=== PATIENT | male | born 1965 | race Caucasian/White ===

== ENCOUNTER → 2017-04-21 | Outpatient (CLI) | payer OTHER ==
[~2017-04-21] MED LIST: OXYC1TAB3 PO
[2017-04-21 12:29] LABS: BENZODIAZEPINE, URINE NEG (NEG); COCAINE,URINE NEG (NEG); PHENCYCLIDINE, URINE NEG (NEG)
== END | disposition home or self-care (01) ==
LOC: C.LAB1850 09:41
PROVIDERS: ATTEND Psychiatry & Neurology Psychiatry
DX: F31.89 Other bipolar disorder (principal)

== ENCOUNTER → 2017-08-23 | Outpatient (CLI) | payer BC ==
[~2017-08-23] MED LIST changes: +LAMO150T32 PO; -OXYC1TAB3 PO
[2017-08-23 09:40] LABS: BASO % 0.2 %; BASO ABS # 0.01 K/uL (0-0.2); COMPLETE YES; EOS % 4.1 %; HEMATOCRIT 41.5 % (42-52); IG% 0.2 %; LYMPH ABS # 2.37 K/uL (1.2-3.4); MEAN CELL VOLUME 95.6 fL (80-100); MEAN CORPUSCULAR HEMOGLOBIN 31.8 pg (25-34); MEAN CORPUSCULAR HGB CONC 33.3 g/dl (32-36); MEAN PLATELET VOLUME 9.5 fL (7.4-10.4); MONO % 6.9 %; NEUT % 46.6 %; PLATELET COUNT 197 K/uL (130-400); RED BLOOD COUNT 4.34 M/uL (4.7-6.1); WHITE BLOOD COUNT 5.64 K/uL (4.8-10.8)
[2017-08-23 09:57] LABS: ALT/SGPT 23 U/L (12-78); BLOOD UREA NITROGEN 12 mg/dl (7-18); BUN/CREATININE RATIO 12.3 (10-20); CALCIUM 8.8 mg/dl (8.5-10.1); CARBON DIOXIDE 29 mmol/L (21-32); CHLORIDE 105 mmol/L (98-107); CHOLESTEROL 171 mg/dl (0-200); CREATININE 1.01 mg/dl (0.60-1.40); GLUCOSE 96 mg/dl (70-99); POTASSIUM 4.3 mmol/L (3.5-5.1); SODIUM 140 mmol/L (136-145); TRIGLYCERIDES 54 mg/dl (0-150); VERY LOW DENSITY LIPOPROT CALC 11 mg/dl
[2017-08-23 10:07] LABS: ALB/GLOB RATIO 1.1 (0.9-2); ALKALINE PHOSPHATASE 50 U/L (45-117); AST/SGOT 16 U/L (15-37); CHOLESTEROL/HDL RATIO 2.1; HDL CHOLESTEROL 83 mg/dl; LDL CHOLESTEROL CALCULATED 77 mg/dl
[2017-08-23 10:16] LABS: BENZODIAZEPINE, URINE NEG (NEG); COCAINE,URINE NEG (NEG); PHENCYCLIDINE, URINE NEG (NEG)
[2017-08-23 10:20] LABS: URINE APPEARANCE CLEAR (CLEAR); URINE BILIRUBIN NEG (NEG); URINE COLOR YELLOW; URINE NITRITE NEG (NEG); URINE SPECIFIC GRAVITY 1.021 (1.000-1.030); UROBILINOGEN NEG (NEG); ZZUR CULT IF INDIC CLEAN CATCH NO
[2017-08-23 10:24] LABS: MANUAL MICROSCOPIC REQUIRED? NO; REVIEW REQ? NO
[2017-08-23 10:49] LABS: LYME DISEASE AB IGG POS (NEG); LYME DISEASE AB IGM EQUIVOCAL (NEG)
== END | disposition home or self-care (01) ==
LOC: C.LAB1850 08:15
PROVIDERS: ATTEND Internal Medicine
DX: Z12.5 Encounter for screening for malignant neoplasm of prostate (principal); Z13.6 Encounter for screening for cardiovascular disorders; F31.89 Other bipolar disorder; R26.9 Unspecified abnormalities of gait and mobility

== ENCOUNTER → 2017-09-09 | Outpatient (CLI) | payer BC ==
[~2017-09-09] MED LIST changes: +LAMO150T PO; -LAMO150T32 PO
[2017-09-09 13:26] LABS: BENZODIAZEPINE, URINE NEG (NEG); COCAINE,URINE NEG (NEG); PHENCYCLIDINE, URINE NEG (NEG)
== END | disposition home or self-care (01) ==
LOC: C.LAB1850 09:55
PROVIDERS: ATTEND Psychiatry & Neurology Psychiatry
DX: F31.89 Other bipolar disorder (principal)

== ENCOUNTER → 2017-10-07 | Outpatient (CLI) | payer OTHER | END | disposition home or self-care (01) | LOC: C.LAB1850 11:08 | PROVIDERS: ATTEND Psychiatry & Neurology Psychiatry | DX: F31.89 Other bipolar disorder (principal) ==

== ENCOUNTER → 2018-01-26 | Outpatient (CLI) | payer OTHER ==
[2018-01-26 13:12] LABS: BASO % 0.2 %; BASO ABS # 0.01 K/uL (0-0.2); EOS % 2.6 %; EOS ABS # 0.15 K/uL (0-0.5); HEMATOCRIT 42.9 % (42-52); HEMOGLOBIN 15.1 g/dL (14.0-18.0); IG# 0.01 K/uL (0.00-0.02); LYMPH ABS # 2.17 K/uL (1.2-3.4); MEAN CELL VOLUME 93.3 fL (80-100); MEAN CORPUSCULAR HEMOGLOBIN 32.8 pg (25-34); MEAN CORPUSCULAR HGB CONC 35.2 g/dl (32-36); MEAN PLATELET VOLUME 9.7 fL (7.4-10.4); MONO ABS # 0.47 K/uL (0.11-0.59); NEUT ABS # 3.06 K/uL (1.4-6.5); PLATELET COUNT 259 K/uL (130-400); RED CELL DISTRIBUTION WIDTH CV 13.5 % (11.5-14.5); RED CELL DISTRIBUTION WIDTH SD 46.1 fL (36.4-46.3); WHITE BLOOD COUNT 5.87 K/uL (4.8-10.8)
== END | disposition home or self-care (01) ==
LOC: C.LAB1850 11:44
PROVIDERS: ATTEND Internal Medicine
DX: D64.9 Anemia, unspecified (principal); F31.89 Other bipolar disorder; E55.9 Vitamin D deficiency, unspecified

== ENCOUNTER → 2018-05-01 | Outpatient (CLI) | payer OTHER ==
[2018-05-05 22:33] LABS: LAMICTAL (LAMOTRIGINE)**22060 2.9 mcg/mL (4.0-18.0)
== END | disposition home or self-care (01) ==
LOC: C.LAB1850 09:09
PROVIDERS: ATTEND Psychiatry & Neurology Psychiatry
DX: F31.89 Other bipolar disorder (principal)

== ENCOUNTER 2023-02-05 15:16 | Observation (INO) ==
[2023-02-05] MEDS ORDERED: SODIUM CHLORIDE 0.9% 1000ML 1,000 ML IV STA (15:50)
[2023-02-05] MEDS: METOPROLOL TARTRATE 1 MG/ML VIAL IV PRN ×2 (15:58→16:40)
--- NOTE | 2023-02-05 15:59 | Emergency Department Note ---
Impression & Plan Atrial flutter with rapid ventricular response ED Provider Note INFORMANT: Patient ED PROVIDER(S): Ignacio Sneed DO CHIEF COMPLAINT: Dizziness/lightheadedness, burning in chest PLAN: Disposition: Admission Outpatient prescription management: none Discussion with: I spoke with the hospitalist, who will see the patient for admission/observation and further evaluation and consultation. MEDICAL DECISION MAKING: This is a 57-year-old male presents to the ED with a chief complaint of lightheadedness for the Past couple of days. He also reports some shortness of breath today. He also has a burning sensation in his chest. The patient was doing some exercise at the time of the symptoms started today. He denies any past medical history although states that he did have a episode of atrial fibrillation in April that resolved after he went to the emergency department. He did not follow-up at all. He has not had any concerning symptoms since. The patient's twelve-lead EKG and monitor show atrial flutter with a heart rate of 160 with a right bundle branch block. His blood pressure initially was 97/74. It was 104 systolic when I saw him in the room. Afebrile. Heart is rapid and slightly irregular. Lungs are clear. Abdomen soft nontender. EKG initially showed a flutter with a heart rate of 160 with a right bundle branch block. Troponin was elevated at 136.6. No leukocytosis or anemia. No electrolyte abnormality or kidney dysfunction. Chest x-ray was clear. Thyroid was normal. The patient received 10 mg IV metoprolol without change in his rate. He was then given 20 mg of IV Cardizem. His rate improved to about 50. He was in atrial fibrillation/flutter at that point. Blood pressure was stable. He was given a liter normal saline prior to the metoprolol. The patient was also started on IV heparin bolus and drip. He will be seen by the hospitalist for further evaluation and care Triage Nursing notes reviewed. Vital Signs: reviewed Prior /Outside records reviewed: [none] Differential diagnosis: A-fib, a flutter, thyroid dysfunction, PE, pneumonia, other. Diagnostics, as interpreted by me: 12 lead ECG: Atrial flutter at a rate of 160 with right bundle branch block. PVCs. Normal QTc Cardiac Monitoring ordered: Atrial flutter in the 150-160 range initially. Medical decision rules: [none] Imaging studies: Chest x-ray: No pneumonia or congestive heart failure Procedures: none. Critical care: I have personally spent 30 minutes of critical care time in the direct management of this patient. This includes bedside care, interpretation of diagnostic studies, and testing, discussion with consultants, patient, and family members, and other required patient management activities. This 30 minutes is in excess of all separately billable procedures. HPI: See MDM above. PAST MEDICAL HISTORY: See Below PAST SURGICAL HISTORY: See Below SOCIAL HISTORY: See Below HOME MEDICATIONS:See Below ALLERGIES: See Below VITALS: See Below PHYSICAL EXAMINATION: See MDM for positive findings otherwise unremarkable. CONSTITUTIONAL/VITAL SIGNS: Reviewed GENERAL:done as appropriate INTEGUMENTARY: done as appropriate HEAD: done as appropriate EYES: done as appropriate RESPIRATORY: done as appropriate CARDIOVASCULAR:done as appropriate GI/ABDOMEN:done as appropriate EXTREMITIES: done as appropriate NEUROLOGICAL: done as appropriate PSYCHIATRIC:done as appropriate MUSCULOSKELETAL:done as appropriate TRIAGE NURSING DOCUMENTATION REVIEWED. Past Med/Surg History Medical History Allergic rhinitis Bipolar disorder, unspecified History of atrial fibrillation occurred while in [place] fall 2021, was treated temporarily, no issues since that one episode; f/u PCP only History of COVID-19 fall 05/2021, [facility], not hosp; fatigue, headache, fever, loss taste/smell>resolved w/exception of brain fog and decreased energy levels Hyperplastic colon polyp hx Internal hemorrhoids hx Lyme disease hx Surgical History History of esophagogastroduodenoscopy (EGD) Hx of colonoscopy Hx of sinus surgery S/P appendectomy Family History Grandfather (Paternal) Myocardial infarction Father Lung cancer Denies family history of Ovarian cancer Prostate cancer Breast cancer Colorectal cancer Social History Smoking Status: Never smoker Second Hand Exposure: Yes (hx); Do You Dip or Chew Tobacco: No; Hx Alcohol Use: Yes Alcohol type: beer, wine and hard liquor Hx Substance Use: No Preferred Language: [place] Communication Ability: Effective Visual Impairment: No Limitations Hearing Ability: Normal Mainframe Software Developer Required: No Beliefs That Will Affect Care: None marital status: Legally Current Living Situation: Alone current occupational status: employed 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 Feels Safe at Home: Yes Childhood Exposure to Second-Hand Smoke: No Diet: regular Dental Care, Regularly: Yes Physical Activity Frequency: 3-4 Times per Week Seatbelt Use: always Sunscreen Use: Yes Assistive Devices: Glasses Allergies Allergies Allergy/AdvReac Type Severity Reaction Status Date / Time No Known Allergies Allergy Verified 01/28/23 11:00 Home Meds Previous Rx's Medication Instructions Recorded sildenafil 100 mg tablet (Viagra) 100 mg PO DAILY PRN sexual 07/27/22 activity #30 tabs imiquimod 5 % topical cream packet 1 applic topical .COMPLEX #24 ea 01/28/23 Results & Data (ED) Vital Signs Vital Signs - 24 hr 02/05/23 15:25 02/05/23 15:58 02/05/23 16:05 Temperature 36.8 C Temperature Source Skin Pulse Rate 156 H 103 H 98 H Pulse Rate from SpO2 Sensor Respiratory Rate 20 Respiratory Effort / Characteristics Non-Labored Spontaneous Respiratory Depth Normal Respiratory Pattern Regular Blood Pressure 97/74 L 103/75 Blood Pressure Mean 81 Pulse Oximetry 98 Oxygen Delivery Method Room Air Sepsis Recent Fever Within 48 Hours No Sepsis New/Unexplained Change in Mental Status N/A Sepsis Action Taken by Nursing No Action Required 02/05/23 16:40 02/05/23 15:51 02/05/23 16:00 Temperature Temperature Source Pulse Rate 141 H 107 H 105 H Pulse Rate from SpO2 Sensor 82 82 Respiratory Rate 23 10 L Respiratory Effort / Characteristics Respiratory Depth Respiratory Pattern Blood Pressure 106/72 Blood Pressure Mean Pulse Oximetry 97 96 Oxygen Delivery Method Sepsis Recent Fever Within 48 Hours Sepsis New/Unexplained Change in Mental Status Sepsis Action Taken by Nursing 02/05/23 16:01 02/05/23 16:01 02/05/23 16:10 Temperature Temperature Source Pulse Rate 102 H 73 Pulse Rate from SpO2 Sensor 72 71 Respiratory Rate 28 H 13 Respiratory Effort / Characteristics Respiratory Depth Respiratory Pattern Blood Pressure 106/72 Blood Pressure Mean 83 Pulse Oximetry 97 97 Oxygen Delivery Method Sepsis Recent Fever Within 48 Hours Sepsis New/Unexplained Change in Mental Status Sepsis Action Taken by Nursing 02/05/23 16:20 02/05/23 16:30 02/05/23 16:40 Temperature Temperature Source Pulse Rate 84 100 H 151 H Pulse Rate from SpO2 Sensor 78 71 150 H Respiratory Rate 15 23 24 Respiratory Effort / Characteristics Respiratory Depth Respiratory Pattern Blood Pressure Blood Pressure Mean Pulse Oximetry 95 96 95 Oxygen Delivery Method Sepsis Recent Fever Within 48 Hours Sepsis New/Unexplained Change in Mental Status Sepsis Action Taken by Nursing 02/05/23 16:46 02/05/23 16:46 02/05/23 16:47 Temperature Temperature Source Pulse Rate 149 H Pulse Rate from SpO2 Sensor 150 H Respiratory Rate 14 Respiratory Effort / Characteristics Respiratory Depth Respiratory Pattern Blood Pressure 123/73 100/78 Blood Pressure Mean 89 85 Pulse Oximetry 97 Oxygen Delivery Method Sepsis Recent Fever Within 48 Hours Sepsis New/Unexplained Change in Mental Status Sepsis Action Taken by Nursing 02/05/23 16:47 02/05/23 16:50 02/05/23 17:28 Temperature Temperature Source Pulse Rate 150 H 77 19 L Pulse Rate from SpO2 Sensor 147 H 80 Respiratory Rate 13 12 Respiratory Effort / Characteristics Respiratory Depth Respiratory Pattern Blood Pressure Blood Pressure Mean Pulse Oximetry 97 97 Oxygen Delivery Method Sepsis Recent Fever Within 48 Hours Sepsis New/Unexplained Change in Mental Status Sepsis Action Taken by Nursing Laboratory Data 02/05/23 15:35 02/05/23 15:35 Lab Results 02/05/23 02/05/23 02/05/23 Range/Units 15:35 15:35 15:35 WBC 6.95 (4.8-10.8) K/ul RBC 4.62 L (4.70-6.10) M/uL Hgb 14.8 (14.0-18.0) g/dl Hct 43.5 (42.0-52.0) % MCV 94.2 (80.0-100.0) fL MCH 32.0 (25.0-34.0) pg MCHC 34.0 (32.0-36.0) g/dL RDW Std Deviation 44.6 (36.4-46.3) fL RDW Coeff of Blue 12.9 (11.5-14.5) % Plt Count 282 (130-400) K/uL MPV 9.7 (9.4-12.4) fL Immature Gran % (Auto) 0.3 % Neut % (Auto) 51.6 % Lymph % (Auto) 37.1 % [place] % (Auto) 7.8 % Eos % (Auto) 2.9 % Baso % (Auto) 0.3 % Neut # (Auto) 3.59 (1.40-6.50) K/uL Lymph # (Auto) 2.58 (1.2-3.4) K/uL [place] # (Auto) 0.54 (0.11-0.59) K/uL Eos # (Auto) 0.20 (0-0.50) K/uL Baso # (Auto) 0.02 (0-0.2) K/uL Immature Gran # (Auto) 0.02 (0.01-0.20) K/uL PT 11.3 (9.0-12.0) Seconds INR 1.0 (0.9-1.1) APTT 26.8 (21.0-31.0) Seconds PTT Ratio 1.0 Sodium 140 (136-145) mmol/L Potassium 4.2 (3.5-5.1) mmol/L Chloride 107 (98-107) mmol/L Carbon Dioxide 26 (21-32) mmol/L Anion Gap 7 (3-11) BUN 22 (6-23) mg/dl Creatinine 1.01 (0.6-1.4) mg/dl Est Cr Clr Drug Dosing 97.6 ml/min Est GFR ( Amer) 95.9 ml/min Est GFR (Non-Af Amer) 82.8 ml/min BUN/Creatinine Ratio 21.8 H (10-20) Glucose 104 H (70-99(Fasting)) mg/dl Calcium 9.3 (8.6-10.3) mg/dl Magnesium 1.7 (1.7-2.4) mg/dl Total Bilirubin 0.4 (0.2-1.0) mg/dl AST 19 (13-39) U/L ALT 15 (7-52) U/L Alkaline Phosphatase 43 (34-104) U/L Troponin I High Sens 136.6 H* (0-20) pg/ml Total Protein 6.6 (6.0-8.3) gm/dl Albumin 4.0 (3.4-5.0) gm/dl Globulin 2.6 (2.5-4.0) gm/dl Albumin/Globulin Ratio 1.5 (0.9-2) TSH (0.300-4.500) uIu/ml 02/05/23 Range/Units 15:35 WBC (4.8-10.8) K/ul RBC (4.70-6.10) M/uL Hgb (14.0-18.0) g/dl Hct (42.0-52.0) % MCV (80.0-100.0) fL MCH (25.0-34.0) pg MCHC (32.0-36.0) g/dL RDW Std Deviation (36.4-46.3) fL RDW Coeff of Blue (11.5-14.5) % Plt Count (130-400) K/uL MPV (9.4-12.4) fL Immature Gran % (Auto) % Neut % (Auto) % Lymph % (Auto) % [place] % (Auto) % Eos % (Auto) % Baso % (Auto) % Neut # (Auto) (1.40-6.50) K/uL Lymph # (Auto) (1.2-3.4) K/uL [place] # (Auto) (0.11-0.59) K/uL Eos # (Auto) (0-0.50) K/uL Baso # (Auto) (0-0.2) K/uL Immature Gran # (Auto) (0.01-0.20) K/uL PT (9.0-12.0) Seconds INR (0.9-1.1) APTT (21.0-31.0) Seconds PTT Ratio Sodium (136-145) mmol/L Potassium (3.5-5.1) mmol/L Chloride (98-107) mmol/L Carbon Dioxide (21-32) mmol/L Anion Gap (3-11) BUN (6-23) mg/dl Creatinine (0.6-1.4) mg/dl Est Cr Clr Drug Dosing ml/min Est GFR ( Amer) ml/min Est GFR (Non-Af Amer) ml/min BUN/Creatinine Ratio (10-20) Glucose (70-99(Fasting)) mg/dl Calcium (8.6-10.3) mg/dl Magnesium (1.7-2.4) mg/dl Total Bilirubin (0.2-1.0) mg/dl AST (13-39) U/L ALT (7-52) U/L Alkaline Phosphatase (34-104) U/L Troponin I High Sens (0-20) pg/ml Total Protein (6.0-8.3) gm/dl Albumin (3.4-5.0) gm/dl Globulin (2.5-4.0) gm/dl Albumin/Globulin Ratio (0.9-2) TSH 2.005 (0.300-4.500) uIu/ml Administered Medications Metoprolol Tartrate (Metoprolol Tartrate 1 Mg/Ml Vial) 5 mg IV Q5M PRN PRN Reason: Tachycardia Stop: 03/07/23 15:49 Last Admin: 02/05/23 16:40 Dose: 5 mg Documented By: Admin: 02/05/23 15:58 Dose: 5 mg Documented By: MG Discontinued Medications Diltiazem HCl (Diltiazem Hcl 5 Mg/Ml 5 Ml Vial) 20 mg IV NOW STA Stop: 02/05/23 16:43 Last Admin: 02/05/23 16:46 Dose: 20 mg Documented By: MG Co-signed By: [facility] Sodium Chloride (Nss 1000ml) 1,000 mls @ 999 mls/hr IV .Q1H1M STA Stop: 02/05/23 16:50 Last Infusion: 02/05/23 16:58 Dose: 0 mls/hr Documented By: Admin: 02/05/23 15:56 Dose: 999 mls/hr Documented By: MG Imaging Data Radiologist's Impression: Chest X-Ray 02/05/23 15:51 XR chest 1V portable HISTORY: Dysrhythmia COMPARISON: Chest CT 12/06/2022. FINDINGS: The lungs are clear. Cardiac silhouette is normal in size. No pleural effusions. No pneumothorax. IMPRESSION: No acute process. ACT 112: Negative or not required by law. Electronically signed by: Wan Licona M.D. 02/05/2023 4:23 PM Discharge Plan Visit Data Chief Complaint: Arrhythmia/Palpitations Stated Complaint: AFIB, DIZZINESS ED Provider: Ignacio Sneed Discharge Problem: Atrial flutter with rapid ventricular response Patient Disposition: Being Evaluated by Hospitalist Forms Stand Alone Forms: [facility] Prescriptions Prescriptions: No Action imiquimod 5 % cream in packet 1 applic topical .COMPLEX Qty: 24 0RF Rx Instructions: 1 applic topically 3 times per week; sildenafil [Viagra] 100 mg tablet 100 mg PO DAILY PRN (Reason: sexual activity) Qty: 30 6RF Rx Instructions: administer 30 minutes to 4 hours before activity Referrals Referrals: Michael Hicks MD [Primary Care Provider] -
[2023-02-05 16:11] LABS: Basophils # (auto) 0.02 K/uL (0-0.2); Basophils % (auto) 0.3 %; Eosinophils % (auto) 2.9 %; Hematocrit (blood only) 43.5 % (42.0-52.0); Hemoglobin 14.8 g/dl (14.0-18.0); Immature Granulocytes # (auto) 0.02 K/uL (0.01-0.20); Immature Granulocytes % (auto) 0.3 %; Lymphocytes # (auto) 2.58 K/uL (1.2-3.4); Lymphocytes % (auto) 37.1 %; Mean Corpuscular Volume 94.2 fL (80.0-100.0); Mean Platelet Volume 9.7 fL (9.4-12.4); Monocytes # (auto) 0.54 K/uL (0.11-0.59); Monocytes % (auto) 7.8 %; Neutrophils # (auto) 3.59 K/uL (1.40-6.50); Neutrophils % (auto) 51.6 %; Platelet Count 282 K/uL (130-400); RDW Coefficient of Variation 12.9 % (11.5-14.5); RDW Standard Deviation 44.6 fL (36.4-46.3); Red Blood Count 4.62 M/uL (4.70-6.10); White Blood Count 6.95 K/ul (4.8-10.8)
[2023-02-05 16:18] LABS: Albumin Globulin Ratio 1.5 (0.9-2); BUN Creatinine Ratio 21.8 (10-20); Bilirubin,Total 0.4 mg/dl (0.2-1.0); Calcium 9.3 mg/dl (8.6-10.3); Creatinine Clr Calc Pharmacy 97.6 ml/min; Est GFR (African American) 95.9 ml/min; Est GFR (Non-African American) 82.8 ml/min; Globulin 2.6 gm/dl (2.5-4.0); Magnesium 1.7 mg/dl (1.7-2.4); Potassium 4.2 mmol/L (3.5-5.1); Total Protein 6.6 gm/dl (6.0-8.3)
--- NOTE | 2023-02-05 16:24 | XRay Report ---
XR chest 1V portable HISTORY: Dysrhythmia COMPARISON: Chest CT 12/06/2022. FINDINGS: The lungs are clear. Cardiac silhouette is normal in size. No pleural effusions. No pneumot horax. IMPRESSION: No acute process. ACT 112: Negative or not required by law. Electronically signed by: Wan Licona M.D. 02/05/2023 4:23 PM
[2023-02-05 16:34] LABS: Troponin I High Sensitivity 136.6 pg/ml (0-20)
[2023-02-05 16:39] LABS: Partial Thromboplastin Time 26.8 Seconds (21.0-31.0); Prothrombin Time 11.3 Seconds (9.0-12.0)
[2023-02-05] MEDS ORDERED: dilTIAZem HCl 5 MG/ML 5 ML VIAL IV STA (16:42)
[2023-02-05] MEDS ORDERED: Heparin IV Adult Wt-Based Standard WITH Bolus Protocol IV STA (17:28)
[2023-02-05] MEDS ORDERED: HEPARIN SOD (PORCINE) 1000 UNIT/ML IV ONE ×2 (17:44→18:00)
[2023-02-05] MEDS ORDERED: HEPARIN SODIUM/DEXTROSE 25,000 UNITS/500 ML BAG IV SCH (17:45)
--- NOTE | 2023-02-05 18:00 | History & Physical Report ---
Date of Service February 05, 2023 Assessment & Plan (1) Atrial flutter with rapid ventricular response: Plan: Adrián is a 57-year-old male with a past medical history of A-fib, GERD, anxiety, and Lyme disease who presented to the ER with 4 days of lightheadedness, weakness, and exercise fatigue without syncope or chest pain who was found to be in A-fib with RVR up to the 150s. This is the second episode of A-fib. He has been admitted for A-fib RVR with elevated troponin A-fib with RVR, w/ suspected demand ischemia. Acute, unstable. 1st recurrence. Second episode, patient had 1 episode onset by exercise approximately 1 year ago at outside hospital. He was prescribed a medication which she does not remember the name of, but did not take this due to going back to normal rhythm and feeling well Patient has been pursuing an aggressive diet and exercise regimen [facility]. He notes he intermittently fasts, and has been very active with cardio exercises recently. These have never been associated with chest pain, but around 4 days ago got much more fatigued than normal. He has not had palpitations with his A-fib Received metoprolol with inadequate rate control, and then diltiazem 20mg w with subsequent bradycardia while in the ER. During hospitalist assessment patient converted to normal sinus rhythm [id number] of 1,pt with extensive family history of MO and stroke. Discussed risk/benefits of anticoagulation and in the setting of GERD, patient prefers to be on the side of caution given family history of stroke. Patient started on heparin in ER, will continue overnight and target transition to Eliquis a.m. 02/06 Troponin is elevated to 136 on admission, suspect demand ischemia without chest pain. 2-hour pending, trended overnight Echo pending Patient does intend to do [facility] which also includes many days of backpacking between easily accessible rescue options. Given his level of activity, and targeting this endeavor will consult cardiology for recommendations for beta-tangela with understanding this may cause maximal exercise limitation versus pill in pocket approach versus ablation should A-fib recur. 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 Colonoscopy 12/09 with 6 mm sessile polyp, nonbleeding internal hemorrhoids. He has not had an upper endoscopy. Has used NSAIDs in the past. Hemoglobin on admission is 14.8, no microcytosis. Disposition: Medical telemetry for A-fib RVR Diet: Clears until midnight, advance to full diet once troponin is downtrending CODE STATUS: Full code DVT prophylaxis: Anticoagulated (2) GERD (gastroesophageal reflux disease): History of Present Illness Primary Care Provider: Michael Hicks MD 1 episode of afib RVR which convertd in critical access hospital last year in ER. Was given a scripts but never filled it. Was provided by neot eating and exercise No sx until this week. Had a feeling of lightheadedness/dizziness atypical for him. Lethargic x4 days. Does not feel fluttering or palpitations. No chest pain/chest pressure. No syncope. Very active training for for [employer], fasting intermittently and working out very hard with 10lbs loss in the last week. Mother: Multiple uncles in 50s of MIs, mother with no heart disease but is on a blood thinner to prevent strokes. He is not sure if his mother has afib. +CVA in materal grandparents. No hx thyroid disease, no hx cancer, no personal or fhx of bleeding/blood clotting problems Had a colonoscopy for small amount of BRBPR a few weeks ago which was normal. No hx of sleep apnea. Feels rested when he wakes up in the morning. No personal hx of heart failure. 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 Medical History: Reviewed Medications: Reviewed Surgical History: Reviewed Family history: Reviewed Allergies: Reviewed Social History: Rare ETOH use, ~2-6 drinks per week some weeks many weeks with no use. On average ~24 drinks per month total or less. +recreational marijuana. No tobacco. Code Status: Allergies Allergy/AdvReac Type Severity Reaction Status Date / Time No Known Allergies Allergy Verified 01/28/23 11:00 Home Medications Medication Instructions Recorded Confirmed Type sildenafil 100 mg tablet (Viagra) 100 mg PO DAILY PRN sexual 07/27/22 01/28/23 Rx activity #30 tabs imiquimod 5 % topical cream packet 1 applic topical .COMPLEX #24 ea 01/28/23 01/28/23 Rx Past Med/Surg History Medical History Allergic rhinitis Bipolar disorder, unspecified History of atrial fibrillation occurred while in [place] fall 2021, was treated temporarily, no issues since that one episode; f/u PCP only History of COVID-19 fall 05/2021, tested in [facility], not hosp; fatigue, headache, fever, loss taste/smell>resolved w/exception of brain fog and decreased energy levels Hyperplastic colon polyp hx Internal hemorrhoids hx Lyme disease hx Surgical History History of esophagogastroduodenoscopy (EGD) Hx of colonoscopy Hx of sinus surgery S/P appendectomy Family History Grandfather (Paternal) Myocardial infarction Father Lung cancer Denies family history of Ovarian cancer Prostate cancer Breast cancer Colorectal cancer Social History Smoking Status: Never smoker Second Hand Exposure: Yes (hx); Do You Dip or Chew Tobacco: No; Hx Alcohol Use: Yes Alcohol type: beer, wine and hard liquor Hx Substance Use: No Preferred Language: Burmese Communication Ability: Effective Visual Impairment: No Limitations Hearing Ability: Normal Right Of Way Worker Required: No Beliefs That Will Affect Care: None marital status: Legally Current Living Situation: Alone current occupational status: employed 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 NAD. Cooperative. HEENT: Atraumatic, normocephalic. Vision/hearing intact Pulm: CTAB A&P. -wheezes, -rales, -rhonchi. Symmetrical chest rise. No increased work of breathing. No respiratory distress. Cardiac: Initially irregular, bradycardic. On repeat assessment return to regular rate and rhythm. Radial pulses intact and symmetrical. Abdominal: Nontender, nondistended, soft. BS present. Extremities: Warm, dry well-perfused. Distal extremity strength and sensation intact Results & Data Results & Data Vital Signs (Past 12 Hours) Vital Signs Temp Pulse Resp BP Pulse Ox O2 Del Method 02/05/23 17:28 19 L 02/05/23 16:50 77 12 97 02/05/23 16:47 150 H 13 97 02/05/23 16:47 100/78 02/05/23 16:46 123/73 02/05/23 16:46 149 H 14 97 02/05/23 16:40 151 H 24 95 02/05/23 16:30 100 H 23 96 02/05/23 16:20 84 15 95 02/05/23 16:10 73 13 97 02/05/23 16:01 102 H 28 H 97 02/05/23 16:01 106/72 02/05/23 16:00 105 H 10 L 96 02/05/23 15:51 107 H 23 97 02/05/23 16:40 141 H 106/72 02/05/23 16:05 98 H 02/05/23 15:58 103 H 103/75 02/05/23 15:25 36.8 C 156 H 20 97/74 L 98 Room Air PG Care Time/CCT Total # of Minutes Spent Total Time Spent with Patient: Total time spent is greater than 50% in coordination of care (as documented) at patient's floor/unit and/or counseling patient: Coding Level of Care Code 07522 INT INP/OBS CARE 2/55MIN Diagnoses Atrial flutter with rapid ventricular response I48.92 GERD (gastroesophageal reflux disease) K21.9
[2023-02-05] MEDS ORDERED: MAGNESIUM OXIDE 400 MG TAB PO ONE (18:34)
[2023-02-05] MEDS ORDERED: PANTOprazole 40 MG TAB PO STA (18:47)
[2023-02-06 01:56] LABS: Partial Thromboplastin Ratio 2.9
[2023-02-06 01:58] LABS: Partial Thromboplastin Time 80.4 Seconds (21.0-31.0)
[2023-02-06 03:51] LABS: Hematocrit (blood only) 38.9 % (42.0-52.0); Hemoglobin 12.9 g/dl (14.0-18.0); Mean Corpuscular Hemoglobin 31.9 pg (25.0-34.0); Mean Corpuscular Hgb Conc 33.2 g/dL (32.0-36.0); Mean Corpuscular Volume 96.3 fL (80.0-100.0); Mean Platelet Volume 9.5 fL (9.4-12.4); Platelet Count 220 K/uL (130-400); RDW Coefficient of Variation 13.1 % (11.5-14.5); RDW Standard Deviation 46.7 fL (36.4-46.3); Red Blood Count 4.04 M/uL (4.70-6.10); White Blood Count 6.14 K/ul (4.8-10.8)
[2023-02-06 04:08] LABS: Calcium 8.5 mg/dl (8.6-10.3); Creatinine Clr Calc Pharmacy 93.9 ml/min; Est GFR (African American) 91.5 ml/min; Potassium 4.2 mmol/L (3.5-5.1)
[2023-02-06 04:15] LABS: Basophils # (auto) 0.03 K/uL (0-0.2); Basophils % (auto) 0.5 %; Eosinophils # (auto) 0.23 K/uL (0-0.50); Eosinophils % (auto) 3.7 %; Immature Granulocytes # (auto) 0.01 K/uL (0.01-0.20); Immature Granulocytes % (auto) 0.2 %; Lymphocytes # (auto) 3.27 K/uL (1.2-3.4); Lymphocytes % (auto) 53.3 %; Monocytes # (auto) 0.41 K/uL (0.11-0.59); Monocytes % (auto) 6.7 %; Neutrophils # (auto) 2.19 K/uL (1.40-6.50); Neutrophils % (auto) 35.6 %
--- NOTE | 2023-02-06 06:58 | Electrocardiogram Report ---
Test Reason : Blood Pressure : / mmHG Vent. Rate : 160 BPM Atrial Rate : 160 BPM P-R Int : 144 ms QRS Dur : 134 ms QT Int : 294 ms P-R-T Axes : 000 062 269 degrees QTc Int : 479 ms Atrial flutter T wave abnormality, consider inferolateral ischemia Abnormal ECG When compared with ECG of 03-JUN-2014 10:58, Vent. rate has increased BY 100 BPM Atrial flutter has replaced sinus rhythm Confirmed by Michael Munson ([id number]) on 02/06/2023 6:57:41 AM Referred By: REFERRED SELF Confirmed By:Kings Munson
[2023-02-06] MEDS ORDERED: ACETAMINOPHEN 500 MG TAB PO PRN (08:46)
[2023-02-06] MEDS ORDERED: PANTOprazole 40 MG TAB PO SCH (09:00)
--- NOTE | 2023-02-06 09:07 | Discharge Summary ---
Date of Service February 06, 2023 Admission HPI Per Admitting Provider 1 episode of afib RVR which convertd in [facility] last year in ER. Was given a scripts but never filled it. Was provided by neot eating and exercise No sx until this week. Had a feeling of lightheadedness/dizziness atypical for him. Lethargic x4 days. Does not feel fluttering or palpitations. No chest pain/chest pressure. No syncope. Very active training for for [employer], fasting intermittently and working out very hard with 10lbs loss in the last week. Mother: Multiple uncles in 50s of MIs, mother with no heart disease but is on a blood thinner to prevent strokes. He is not sure if his mother has afib. +CVA in materal grandparents. No hx thyroid disease, no hx cancer, no personal or fhx of bleeding/blood clotting problems Had a colonoscopy for small amount of BRBPR a few weeks ago which was normal. No hx of sleep apnea. Feels rested when he wakes up in the morning. No personal hx of heart failure. 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 Medical History: Reviewed Medications: Reviewed Surgical History: Reviewed Family history: Reviewed Allergies: Reviewed Social History: Rare ETOH use, ~2-6 drinks per week some weeks many weeks with no use. On average ~24 drinks per month total or less. +recreational marijuana. No tobacco. Code Status: Admission Exam Per Admitting Provider General: A&Ox3. NAD. Cooperative. HEENT: Atraumatic, normocephalic. Vision/hearing intact Pulm: CTAB A&P. -wheezes, -rales, -rhonchi. Symmetrical chest rise. No increased work of breathing. No respiratory distress. Cardiac: Initially irregular, bradycardic. On repeat assessment return to regular rate and rhythm. Radial pulses intact and symmetrical. Abdominal: Nontender, nondistended, soft. BS present. Extremities: Warm, dry well-perfused. Distal extremity strength and sensation intact Principal Diagnosis Atrial Flutter with Rapid Ventricular Response Discharge Exam General: A&Ox3. NAD. Cooperative. HEENT: Atraumatic, normocephalic. Pulm: CTAB A&P. -wheezes, -rales, -rhonchi. Symmetrical chest rise. No increase work of breathing. No respiratory distress. Cardiac: RRR, -mrg. Radial pulses intact and symmetrical. Abdominal: soft, non-tender, non-distended, BS x 4 Skin: warm, dry, no rash Discharge Data Allergies Allergy/AdvReac Type Severity Reaction Status Date / Time No Known Allergies Allergy Verified 02/05/23 20:05 Consultations 02/05/23 17:28 ED Decision to Admit Stat 02/05/23 18:33 Consult Cardiology Routine Hospital Course (1) Atrial flutter with rapid ventricular response: Adrián is a 57-year-old male with a past medical history of A-fib, GERD, anxiety, and h/o Lyme disease who presented to the ER with 4 days of lightheadedness, weakness, and exercise fatigue without syncope or chest pain who was found to be in Atrial flutter with RVR up to the 150s. This is the second episode of A-fib.Patient was admitted from 02/05 - 02/06 at [facility]. Atrial Flutter with Rapid Ventricular Reponse, resolved - S/p Lopressor 5mg IV x2, followed by Diltiazem 20mg IV x1 --> with resultant bradycardia and rapid conversion to sinus rhythm - remained in sinus rhythm and ranged in 50s-60s during hospitalization - initially started on Heparin gtt --> transitioned to Eliquis 5mg PO BID starting on 02/06 in AM - TTE with mild concentric LVH, otherwise no abnormalities - Cardiology consulted - recommendations: - anti-coagulation x3 weeks only and then stop (CHADS-VASc score of 1) - no chronic rate-control medication required at this time - consider outpatient cardiac event monitor - per PCP Elevated Troponin hsTroponin peaked at [address]/T abnormalities on EKG. Suspect demand ischemia due to a-flutter with RVR Total Time Total Time Spent Total Time Spent (In Minutes): I spent 30 minutes reviewing the patient's chart, laboratory work, cardiology consultation, seeing the patient and reviewing all, and documenting. Discharge Plan Discharge Items Patient Disposition: Home - Self-Care Reason For Visit: AFIB RVR, TROP Discharge Diagnosis: Atrial Flutter with Rapid Ventricular Response Activity: Per Instructions section Non-emergency contact: Primary Care Provider Call non-emergency contact if: you have any medication questions and your symptoms worsen Follow-up/Referrals: Hicks,Christopher E., MD [Primary Care Provider] - 02/10/23 11:00 am (With Christiane Rodarte) Diet: Regular Addtl Attending Provider Instructions: You were admitted to [facility] from 02/05 - 02/06 for atrial flutter (abnormal heart rhythm). You were given several IV heart-rate controlling medications (Metoprolol and Dilitiazem) and your heart rate converted back to normal. You were started on an IV blood thinner, and our Button Decorating Machine Operator saw you and recommended that you switch to taking an oral blood thinner for several weeks. You also had an ultrasound of your heart (Echocardiogram) which was largely normal, apart from mild left ventricular c oncentric hypertrophy (slightly enlarged heart muscle) which is not concerning and typical for many athletes. Please continue to take Eliquis twice per day for at least the next 3 weeks. You can speak more with your primary care physician about whether it would be appropriate to continue the medication beyond 3 weeks. You can also speak with your primary care physician about wearing a cardiac event monitor for several weeks to help determine if you have further episodes of atrial fibrillation or atrial flutter. We hope you continue to feel well. It was a pleasure to help provide your care while you were hospitalized. Pending Studies at Discharge: No Stand-Alone Forms: My [facility], Smoking Cessation Medications and DC Order Prescriptions: New apixaban 5 mg tablet 5 mg PO BID 21 Days Qty: 42 0RF Continued imiquimod 5 % cream in packet 1 applic topical .COMPLEX Qty: 24 0RF Rx Instructions: 1 applic topically 3 times per week; sildenafil [Viagra] 100 mg tablet 100 mg PO DAILY PRN (Reason: sexual activity) Qty: 30 6RF Rx Instructions: administer 30 minutes to 4 hours before activity acetaminophen [Tylenol Extra Strength] 500 mg Tablet 500 mg PO Q6H PRN (Reason: Pain) cholecalciferol (vitamin D3) [Vitamin D3] 50 mcg (2,000 unit) Capsule 0 mcg PO DAILY Discharge Orders: Discharge Order (Routine); Ordered 02/06/23 Ordered By: Ramon Mays Admission Data Admit Date/Time: 02/05/23 18:18 Attending Provider: Trevor Diallo Admit Provider: Chase Hart Primary Care Provider: Michael Hicks Other Providers: Chase Hart ; Michael Munson Other Interventions: Discharge Summary Assessment (RN) Last Done: 02/06/23 13:28 Supervising Physician Co-Signing Physician Notes ATTESTATION I also saw the patient and confirmed mae portions of the history and exam. I agree with the impression and plan in the resident documentation, and as summarized below. Upon my midmorning exam, the patient was without complaints. No chest pain or shortness of breath. He has already been seen by cardiology; recommendations reviewed. He is actively training, walks daily without chest pain or shortness of breath. EXAM 117/75, 50, 18, 36.6, 96% on room air Alert and oriented. No distress appreciated. Mucous membranes pink and moist Neck supple. No JVD appreciated. Heart regular rate and rhythm. Auscultated rate 60. Lungs clear throughout with nonlabored respirations Extremities without edema DATA Labs WBC 6.14, hemoglobin 12.9, platelet count 220 Sodium 138, potassium 4.2, BUN 22, creatinine 1.05 High-sensitivity troponin presented at 136.6, and subsequent measures have down trended, most recent 82.1 Imaging Chest x-ray shows no acute disease process Transthoracic echocardiogram essentially normal IMPRESSION & PLAN Atrial flutter, episodic, resolved Elevated troponin Appreciate cardiology consultation. With patient's low resting heart rate, not ideal candidate for beta-blockade. Anticoagulation for 3 weeks given unknown duration. Interestingly, the patient is minimally symptomatic from his tachydysrhythmias, so unsure of the frequency and duration of his events. For this reason, would consider outpatient event monitor. Would also make efforts to obtain records from his previously documented event in [place] (atrial fibrillation versus atrial flutter) and results of any additional testing (echocardiogram). Additional per resident documentation Resident Activity Tracking Resident Involvement: Resident Care Provided Care Provided: Adult [facility] Medicine
[2023-02-06] MEDS ORDERED: APIXABAN 5 MG TABLET PO SCH (09:15)
--- NOTE | 2023-02-06 09:25 | Cardiology Consultation ---
Date of Consultation February 06, 2023 Assessment & Plan (1) Atrial flutter with rapid ventricular response: (2) Elevated troponin: Plan 1. Atrial flutter: Unclear etiology. He does not provide a good history for sleep apnea or pulmonary embolus. He did notice a change in the rhythm, but overall was minimally symptomatic and in fact exercise quite vigorously over the past several days. He will be curious to see the source documentation of his arrhythmia in [place]. If he had atrial flutter at that time he would be a good candidate for catheter based therapy in order to eliminate the risk of recurrence. However, if he had atrial fibrillation than ablation of flutter is less beneficial. I do not think he requires a daily medication of any variety. I do not believe is an indication for beta-blockade nor would he likely tolerated very well. Two episodes over the course of the years think we can simply monitor him for recurrence especially given how well tolerated the episodes were. It would seem reasonable to provide anticoagulation for 3 weeks given the unknown duration of the episode. Afterwards however his chads Vasc score is 0 and he does not require ongoing anticoagulation. 2. Elevated troponin: Likely related to high heart rates and exercise over the past few days. Do not think this represents an acute coronary syndrome. Low risk for coronary disease and no additional symptoms of coronary disease. History of Present Illness Reason for Consultation: Atrial flutter Requesting Physician: Tanner Attending Physician: Trevor Diallo DO History of Present Illness The patient is a 57-year-old gentleman with a reported history of atrial fibrillation who presented to the emergency room yesterday for an elevated heart rate. The patient states that a few days ago he did notice a change in his heart rhythm. This occurred while at rest. He had some element of fatigue and exercise intolerance associated with this change, but continued to perform his regular activity including vigorous exercise. Yesterday apparently he used a pulse oximeter to check his heart rate and discovered to be 150 beats per minute. Based on his symptoms and elevated heart rate he presented to the emergency room for evaluation where he was discovered to have atrial flutter. It seems the patient was administered beta-blockade and calcium channel tangela and eventually converted to sinus rhythm spontaneously. He was unaware of the change in rhythm at that time. He reports having an episode of atrial fibrillation in April of 2022. At that time the patient was training in [place]. He reported being dehydrated, not eating and smoking marijuana before passing out. He was brought to a hospital in [place] and discovered to have atrial fibrillation. By his report he again converted spontaneously and was discharged with an unknown medication. He never filled that prescription. He is an otherwise very active individual. He trains vigorously. 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 He does not report symptoms associated with activity other than the previously mentioned mild exercise intolerance over the past few days. He did report a sense of indigestion in the xiphoid area over the past few days. This was not severe nor did it change much with activity. Allergies Allergy/AdvReac Type Severity Reaction Status Date / Time No Known Allergies Allergy Verified 02/05/23 20:05 Home Medications Medication Instructions Recorded Confirmed Type sildenafil 100 mg tablet (Viagra) 100 mg PO DAILY PRN sexual 07/27/22 02/05/23 Rx activity #30 tabs imiquimod 5 % topical cream packet 1 applic topical .COMPLEX #24 ea 01/28/23 02/05/23 Rx acetaminophen 500 mg tablet 500 mg PO Q6H PRN Pain 02/05/23 02/05/23 History (Tylenol Extra Strength) cholecalciferol (vitamin D3) 50 0 mcg PO DAILY 02/05/23 02/05/23 History mcg (2,000 unit) capsule (Vitamin D3) apixaban 5 mg tablet 5 mg PO BID 21 days #42 tabs 02/06/23 Rx Patient History Medical History Allergic rhinitis Bipolar disorder, unspecified History of atrial fibrillation occurred while in [place] fall 2021, was treated temporarily, no issues since that one episode; f/u PCP only History of COVID-19 fall 05/2021, tested in [facility], not hosp; fatigue, headache, fever, loss taste/smell>resolved w/exception of brain fog and decreased energy levels Hyperplastic colon polyp hx Internal hemorrhoids hx Lyme disease hx Surgical History History of esophagogastroduodenoscopy (EGD) Hx of colonoscopy Hx of sinus surgery S/P appendectomy Family History Grandfather (Paternal) Myocardial infarction Father Lung cancer Denies family history of Ovarian cancer Prostate cancer Breast cancer Colorectal cancer Social History Smoking Status: Never smoker Second Hand Exposure: Yes (hx); Do You Dip or Chew Tobacco: No; Hx Alcohol Use: No Hx Substance Use: No Preferred Language: Ukrainian Communication Ability: Effective Visual Impairment: No Limitations Hearing Ability: Normal Log Washer Required: No Beliefs That Will Affect Care: None marital status: Legally Current Living Situation: Parent Current Living Situation Comment: lives with Mom current occupational status: employed 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 Physical Exam Physical Exam: The patient is alert and oriented. Mood and affect appeared normal. He answered all questions appropriately. HEENT: Pupils are equal and reactive to light and accommodation. Extraocular movements are intact. The sclerae are anicteric. Neuro: Cranial nerves intact Neck: Patient's neck is supple. Lungs: Clear to auscultation bilaterally. He has good air movement without use of accessory muscles. No rales wheezes or rhonchi. Cardiac: Heart demonstrates a regular rate and rhythm. Normal S1 and S2. No murmurs on examination. Pulses: The patient has palpable radial pulses bilaterally that are equal in intensity Extremities: There was no evidence of hypoperfusion. There is no cyanosis or clubbing. There is no edema. Skin: I did not appreciate any rashes on examination today. Results & Data Vital Signs (Past 12 Hours) Vital Signs Temp Pulse Pulse Resp BP Pulse Ox O2 Del Method 02/06/23 09:05 36.6 C 50 L 18 117/75 96 Room Air 02/05/23 21:37 38 C H 52 L 16 121/79 98 Room Air 02/06/23 02:15 36.7 C 48 L 16 109/71 97 Room Air 02/06/23 00:00 52 L 02/05/23 21:37 38.0 C H 52 L 16 121/79 98 Room Air Laboratory Results Abnormal Lab Results 02/05/23 02/05/23 02/05/23 15:35 15:35 15:35 WBC 6.95 RBC 4.62 L Hgb 14.8 Hct 43.5 MCV 94.2 MCH 32.0 MCHC 34.0 RDW Std Deviation 44.6 RDW Coeff of Blue 12.9 Plt Count 282 MPV 9.7 Immature Gran % (Auto) 0.3 Neut % (Auto) 51.6 Lymph % (Auto) 37.1 [place] % (Auto) 7.8 Eos % (Auto) 2.9 Baso % (Auto) 0.3 Neut # (Auto) 3.59 Lymph # (Auto) 2.58 [place] # (Auto) 0.54 Eos # (Auto) 0.20 Baso # (Auto) 0.02 Immature Gran # (Auto) 0.02 PT 11.3 INR 1.0 APTT 26.8 PTT Ratio 1.0 Sodium 140 Potassium 4.2 Chloride 107 Carbon Dioxide 26 Anion Gap 7 BUN 22 Creatinine 1.01 Est Cr Clr Drug Dosing 97.6 Est GFR ( Amer) 95.9 Est GFR (Non-Af Amer) 82.8 BUN/Creatinine Ratio 21.8 H Glucose 104 H Calcium 9.3 Magnesium 1.7 Total Bilirubin 0.4 AST 19 ALT 15 Alkaline Phosphatase 43 Troponin I High Sens 136.6 H* Total Protein 6.6 Albumin 4.0 Globulin 2.6 Albumin/Globulin Ratio 1.5 TSH SARS-CoV-2, RNA, NAAT 02/05/23 02/05/23 02/05/23 15:35 18:27 19:02 WBC RBC Hgb Hct MCV MCH MCHC RDW Std Deviation RDW Coeff of Blue Plt Count MPV Immature Gran % (Auto) Neut % (Auto) Lymph % (Auto) [place] % (Auto) Eos % (Auto) Baso % (Auto) Neut # (Auto) Lymph # (Auto) [place] # (Auto) Eos # (Auto) Baso # (Auto) Immature Gran # (Auto) PT INR APTT PTT Ratio Sodium Potassium Chloride Carbon Dioxide Anion Gap BUN Creatinine Est Cr Clr Drug Dosing Est GFR ( Amer) Est GFR (Non-Af Amer) BUN/Creatinine Ratio Glucose Calcium Magnesium Total Bilirubin AST ALT Alkaline Phosphatase Troponin I High Sens 136.5 H* Total Protein Albumin Globulin Albumin/Globulin Ratio TSH 2.005 SARS-CoV-2, RNA, NAAT NEGATIVE 02/06/23 02/06/23 02/06/23 00:40 03:15 03:15 WBC 6.14 RBC 4.04 L Hgb 12.9 L Hct 38.9 L MCV 96.3 MCH 31.9 MCHC 33.2 RDW Std Deviation 46.7 H RDW Coeff of Blue 13.1 Plt Count 220 MPV 9.5 Immature Gran % (Auto) 0.2 Neut % (Auto) 35.6 Lymph % (Auto) 53.3 [place] % (Auto) 6.7 Eos % (Auto) 3.7 Baso % (Auto) 0.5 Neut # (Auto) 2.19 Lymph # (Auto) 3.27 [place] # (Auto) 0.41 Eos # (Auto) 0.23 Baso # (Auto) 0.03 Immature Gran # (Auto) 0.01 PT INR APTT 80.4 H* PTT Ratio 2.9 Sodium Potassium Chloride Carbon Dioxide Anion Gap BUN Creatinine Est Cr Clr Drug Dosing Est GFR ( Amer) Est GFR (Non-Af Amer) BUN/Creatinine Ratio Glucose Calcium Magnesium Total Bilirubin AST ALT Alkaline Phosphatase Troponin I High Sens 99.4 H* D Total Protein Albumin Globulin Albumin/Globulin Ratio TSH SARS-CoV-2, RNA, NAAT 02/06/23 03:15 WBC RBC Hgb Hct MCV MCH MCHC RDW Std Deviation RDW Coeff of Blue Plt Count MPV Immature Gran % (Auto) Neut % (Auto) Lymph % (Auto) [place] % (Auto) Eos % (Auto) Baso % (Auto) Neut # (Auto) Lymph # (Auto) [place] # (Auto) Eos # (Auto) Baso # (Auto) Immature Gran # (Auto) PT INR APTT PTT Ratio Sodium 138 Potassium 4.2 Chloride 104 Carbon Dioxide 28 Anion Gap 6 BUN 22 Creatinine 1.05 Est Cr Clr Drug Dosing 93.9 Est GFR ( Amer) 91.5 Est GFR (Non-Af Amer) 79.0 BUN/Creatinine Ratio 21.0 H Glucose 103 H Calcium 8.5 L Magnesium Total Bilirubin AST ALT Alkaline Phosphatase Troponin I High Sens Total Protein Albumin Globulin Albumin/Globulin Ratio TSH SARS-CoV-2, RNA, NAAT Diagnostic Findings Chest x-ray obtained the time admission did not reveal any acute cardiopulmonary process Echocardiogram performed today was normal. Normal LV systolic function without valvular heart disease. Normal chamber dimensions. ECG Additional Comments: EKG obtained the time admission was atrial flutter with rapid ventricular response. PG Care Time/CCT Total # of Minutes Spent Total Time Spent with Patient: Total time spent is greater than 50% in coordination of care (as documented) at patient's floor/unit and/or counseling patient: Coding Level of Care Code 31549 OFFICE CONSULT LVL 40M Diagnoses Atrial flutter with rapid ventricular response I48.92 Elevated troponin R77.8
[2023-02-06 09:50] LABS: Partial Thromboplastin Ratio 2.7
[2023-02-06 09:57] LABS: Partial Thromboplastin Time 75.9 Seconds (21.0-31.0)
--- NOTE | 2023-02-06 10:15 | XCELERA ---
[id number]
== END 2023-02-06 14:19 | disposition home or self-care (01) | DRG 310 ==
LOC: ED 15:16 → 4W 18:18 → INTOOBSV 18:18 → SUATTDRO 18:18 → 4W 21:20